=== PATIENT | female | born 2000 ===

== ENCOUNTER 2024-06-12 13:56 | Emergency (ER) | payer SELFPAY ==
[2024-06-12 14:05] VITALS: BP 115/72
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
== END 2024-06-12 17:00 | disposition home or self-care (01) ==
LOC: EMR 13:56
PROVIDERS: EMERGENCY PHYSICIAN Emergency Medicine
DX: S16.1XXA Strain of muscle, fascia and tendon at neck level, initial encounter (principal); R51.9 Headache, unspecified; V43.52XA Car driver injured in collision with other type car in traffic accident, initial encounter; Y92.410 Unspecified street and highway as the place of occurrence of the external cause; Q21.10 Atrial septal defect, unspecified; R01.1 Cardiac murmur, unspecified
CPT/HCPCS: 99284; 70450; 72125